=== PATIENT | female | born 1990 | race Caucasian/White ===

== ENCOUNTER 2019-07-08 08:26 | Inpatient (IN) ==
[2019-07-08] MEDS ORDERED: PITOCIN 30 UNITS/NS 30 UNIT/500 ML IV.SOLN ONE (08:47)
[2019-07-08] MEDS ORDERED: LR 2,000 ML ONE (08:47)
[2019-07-08] MEDS ORDERED: STADOL IV PRN (09:04)
[2019-07-08] MEDS ORDERED: LR 500 ML IV ONE (09:04)
[2019-07-08] MEDS ORDERED: AMPICILLIN 2 GM/NS 2 GM/100 ML IVPB IV ONE (09:04)
[2019-07-08] MEDS ORDERED: TYLENOL PO PRN (09:04)
[2019-07-08] MEDS ORDERED: KEFZOL 1 GM/D5W 1 GM/50 ML IVPB IV PRN (09:04)
[2019-07-08] MEDS ORDERED: REGLAN PO ONE (09:04)
[2019-07-08] MEDS ORDERED: PEPCID PO ONE (09:04)
[2019-07-08] MEDS ORDERED: PEPCID PO PRN (09:04)
[2019-07-08] MEDS ORDERED: PEPCID IV PRN (09:04)
[2019-07-08] MEDS ORDERED: ZOFRAN IV PRN (09:04)
[2019-07-08 09:14] LABS: BASO# 0.03 X1000 (0.0-0.2); BASO% 0.2 % (0.0-0.8); EOS# 0.14 X1000 (0.0-0.7); EOS% 0.8 % (0.0-10.0); HEMATOCRIT 35.3 % (37.0-47.0); HEMOGLOBIN 12.1 g/dL (12.0-16.0); IMM GRAN# 0.07 X1000 (0.0-0.04); IMM GRAN% 0.4 % (0.0-0.5); LYMPH# 2.46 X1000 (1.2-3.4); LYMPH% 13.2 % (20.5-51.1); MCH 29.7 PG (27-31); MCHC 34.3 g/dL (33-37); MCV 86.7 FL (81-99); MONO# 1.44 X1000 (0.11-0.59); MONO% 7.7 % (1.7-9.3); MPV 10.7 FL (7.4-10.4); NEUT# 14.49 X1000 (1.4-6.5); NEUT% 77.7 % (42.2-75.2); PLT 411 X1000 (130-400); RBC 4.07 XMIL (4.2-5.4); RDW 12.4 % (11.5-14.5); WBC 18.63 X1000 (4.8-10.8)
[2019-07-08] MEDS ORDERED: SODIUM CHLORIDE 0.9% INJ SCH (09:15)
[2019-07-08] MEDS ORDERED: NAROPIN 0.2% INJ ONE (09:15)
[2019-07-08] MEDS ORDERED: PITOCIN 30 UNITS/NS 30 UNIT/500 ML IV.SOLN IV SCH ×2 (09:15→12:45)
[2019-07-08 09:17] LABS: URINE SOURCE VOIDED
[2019-07-08 09:25] LABS: BILIRUBIN URINE NEGATIVE (NEGATIVE); BLOOD URINE TRACE (NEGATIVE); CLARITY VERY CLOUDY (CLEAR); COLOR YELLOW; GLUCOSE URINE NEGATIVE (NEGATIVE); KETONE URINE NEGATIVE (NEGATIVE); LEUKOCYTES URINE 2+ (NEGATIVE); NITRITE URINE NEGATIVE (NEGATIVE); PH URINE 6.5; PROTEIN URINE TRACE mg/dL (NEGATIVE); UROBILINOGEN URINE NORMAL
[2019-07-08] MEDS: LR 1,000 ML IV SCH ×2 (09:48→10:46)
[2019-07-08] MEDS ORDERED: FENTANYL-BUPIV-NS 2 MCG-0.1% 200 ML EPIDURAL SCH (10:00)
[2019-07-08] MEDS ORDERED: EPHEDRINE IV ONE ×4 (10:00→10:50)
[2019-07-08] MEDS ORDERED: EPINEPHRINE ONE (10:04)
[2019-07-08] MEDS ORDERED: EPHEDRINE ONE (10:20)
--- NOTE | 2019-07-08 10:42 | HISTORY AND PHYSICAL ---
HISTORY OF PRESENT ILLNESS: The patient is a 28-year-old G5, P0, 2-2-2 who presents to Labor and Delivery at 35 weeks in early labor. The patient reports minimal movement and positive contractions. Negative leakage of fluid or vaginal bleeding. MEDICATIONS: vitamins. PAST MEDICAL HISTORY: None. PAST SURGICAL HISTORY: D C times 2 in 2008 and 2016, and gallbladder removal in 2018. 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 Two prior deliveries at 36 weeks. No complications. Two spontaneous miscarriages complicated by Brian Goldsmith. INCOMPLETE REPORT -- DICTATION ENDED HERE
--- NOTE | 2019-07-08 10:46 | HISTORY AND PHYSICAL ---
ADDENDUM: HISTORY OF PRESENT ILLNESS: The patient is a 28-year-old G5, P0, 2-2-2 who presents to Labor and Delivery at 35 weeks and 5 days in early labor. The patient reports minimal movement and positive contractions. Negative leakage of fluid or vaginal bleeding. MEDICATIONS: vitamins. PAST MEDICAL HISTORY: None. PAST SURGICAL HISTORY: D and C times 2 in 2009 and 2017, and gallbladder removal in 2018. 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 Two prior deliveries at 36 weeks. No complications. Two spontaneous miscarriages complicated by D C. PHYSICAL EXAMINATION: VITAL SIGNS: Stable. GENERAL: No acute distress. Alert, awake, oriented x3. CARDIOVASCULAR: Regular rate and rhythm. Positive S1, S2. RESPIRATORY: Clear to auscultation bilaterally. ABDOMEN: Gravid. Nontender to palpation. PELVIC: Sterile vaginal exam, 4 to 5 cm dilated, 80% effaced, -1 station. Electronic monitoring, category 1 tracing, toco contractions occurring every 3 to 5 minutes. LABORATORY DATA: WBCs 18.63, hemoglobin 12.1, hematocrit 35.3, platelets 411,000. RPR nonreactive. ASSESSMENT: Ms. John is a 28-year-old, G5, P0-2-2-2, at 35 weeks and 5 days, who presents to Labor and Delivery in early labor. PLAN: 1. Admit to Labor and Delivery for early labor. 2. Obtain routine labor labs. 3. Start ampicillin for GBS unknown. 4. Estimated weight 6.5 pounds. 5. Anticipate vaginal delivery. 6. continuous monitoring [facility]
[2019-07-08] MEDS ORDERED: CYTOTEC PO PRN (12:32)
[2019-07-08] MEDS ORDERED: M-M-R II VACCINE SUBQ ONE (12:32)
[2019-07-08] MEDS ORDERED: BENADRYL PO PRN (12:32)
[2019-07-08] MEDS ORDERED: MINERAL OIL PO PRN (12:32)
[2019-07-08] MEDS ORDERED: PERI MEDS (DERMOPLAST/NUPERCAINAL/TUCKS) MISC PRN (12:32)
[2019-07-08] MEDS ORDERED: HYDROXYZINE IM PRN (12:32)
[2019-07-08] MEDS ORDERED: BOOSTRIX VACCINE IM ONE (12:32)
[2019-07-08] MEDS ORDERED: ATARAX PO PRN (12:32)
[2019-07-08] MEDS ORDERED: AMBIEN PO PRN (12:32)
[2019-07-08] MEDS ORDERED: PITOCIN IM PRN (12:32)
[2019-07-08] MEDS ORDERED: XYLOCAINE-MPF 1% INJ PRN (12:32)
[2019-07-08] MEDS ORDERED: BENADRYL IV PRN (12:32)
[2019-07-08] MEDS ORDERED: PITOCIN 20 UNITS/NS 20 UNITS/1,000 ML IV.SOLN IV SCH (12:45)
[2019-07-08] MEDS ORDERED: AMPICILLIN 1 GM/NS 1 GM/50 ML IVPB IV SCH (13:06)
[2019-07-08 14:13] LABS: UR AMPHETAMINES QUAL NONE DETECTED (NONE DETECT); UR BARBITUATES QUAL NONE DETECTED (NONE DETECT); UR BENZODIAZEPIN QUAL NONE DETECTED (NONE DETECT); UR CANNABINOIDS QUAL NONE DETECTED (NONE DETECT); UR COCAINE QUAL NONE DETECTED (NONE DETECT); UR METHADONE QUAL NONE DETECTED (NONE DETECT); UR METHAMPHETAMINE QUAL NONE DETECTED (NONE DETECT); UR OPIATES QUAL NONE DETECTED (NONE DETECT); UR OXYCODONE QUAL NONE DETECTED (NONE DETECT); UR PCP QUAL NONE DETECTED (NONE DETECT); UR PROPOXYPHENE QUAL NONE DETECTED (NONE DETECT); UR TCA QUAL NONE DETECTED (NONE DETECT)
[2019-07-08] MEDS: MOTRIN PO PRN (15:02)
--- NOTE | 2019-07-08 19:17 | OPERATIVE NOTE ---
PROCEDURE DATE: 07/08/2019 DELIVERY NOTE: Spontaneous vaginal delivery. DATE OF VAGINAL DELIVERY: 07/08/2019. DELIVERING PROVIDER: Dr. Walter Resendez. DESCRIPTION OF PROCEDURE: At 12:25 p.m., the patient delivered a viable, 35 week 5 day male fetus, weighing 5 pounds 11 ounces, with Apgars of 8 and 9 at one and five minutes respectively. The vertex was delivered spontaneously over intact perineum. No nuchal cord was identified. The anterior shoulder was delivered atraumatically by maternal expulsive efforts with the assistance of downward traction. The posterior shoulder delivered with maternal expulsive efforts and upward traction. The remainder of the fetus delivered spontaneously. Upon delivery, the cord was clamped and cut. The infant was then passed to the awaiting microbiology lab manager staff. Cord blood was obtained for analysis. The placenta delivered spontaneously intact with a three-vessel cord. To enhance uterine contractions, IV oxytocin was administered along with uterine fundal massage. The cervix, vagina, and perineum were inspected for lacerations. No lacerations were identified. ESTIMATED BLOOD LOSS: 200 mL.
[2019-07-08] MEDS ORDERED: PERICOLACE PO SCH (21:00)
[2019-07-09 04:38] LABS: BASO# 0.02 X1000 (0.0-0.2); BASO% 0.1 % (0.0-0.8); EOS# 0.19 X1000 (0.0-0.7); EOS% 1.2 % (0.0-10.0); HEMATOCRIT 29.5 % (37.0-47.0); HEMOGLOBIN 9.6 g/dL (12.0-16.0); IMM GRAN# 0.05 X1000 (0.0-0.04); IMM GRAN% 0.3 % (0.0-0.5); LYMPH# 3.26 X1000 (1.2-3.4); LYMPH% 20.7 % (20.5-51.1); MCH 29.1 PG (27-31); MCHC 32.5 g/dL (33-37); MCV 89.4 FL (81-99); MONO# 1.65 X1000 (0.11-0.59); MONO% 10.5 % (1.7-9.3); MPV 10.6 FL (7.4-10.4); NEUT# 10.61 X1000 (1.4-6.5); NEUT% 67.2 % (42.2-75.2); PLT 313 X1000 (130-400); RDW 12.6 % (11.5-14.5); WBC 15.78 X1000 (4.8-10.8)
--- NOTE | 2019-07-09 09:04 | OB/GYN PROGRESS NOTE ---
Progress Note OB - . OB Progress Note: Vital Signs - 24 hr 07/08/19 12:35 07/08/19 12:45 07/08/19 12:55 Temperature 97.2 F L Pulse Rate 112 H 94 H 88 Respiratory Rate 20 20 20 Blood Pressure Blood Pressure [Left Arm] 124/67 106/58 108/57 O2 Sat by Pulse Oximetry 98 98 99 07/08/19 13:05 07/08/19 13:15 07/08/19 13:25 Temperature Pulse Rate 67 68 70 Respiratory Rate 20 20 20 Blood Pressure Blood Pressure [Left Arm] 110/60 113/66 109/58 O2 Sat by Pulse Oximetry 99 100 99 07/08/19 13:35 07/08/19 16:05 07/08/19 17:05 Temperature 98.5 F 98.2 F Pulse Rate 59 L 84 76 Respiratory Rate 20 20 20 Blood Pressure 108/57 96/53 Blood Pressure [Left Arm] 108/61 O2 Sat by Pulse Oximetry 100 98 99 07/08/19 18:09 07/08/19 20:10 07/09/19 00:30 Temperature 96.9 F L 97.2 F L Pulse Rate 78 96 H 96 H Respiratory Rate 20 18 18 Blood Pressure 107/61 119/65 112/64 Blood Pressure [Left Arm] O2 Sat by Pulse Oximetry 98 07/09/19 08:20 Temperature 97.4 F L Pulse Rate 86 Respiratory Rate 16 Blood Pressure 116/65 Blood Pressure [Left Arm] O2 Sat by Pulse Oximetry 100 Laboratory Results - last 24 hr 07/08/19 07/08/19 07/08/19 08:45 08:45 08:45 WBC 18.63 H RBC 4.07 L Hgb 12.1 Hct 35.3 L MCV 86.7 MCH 29.7 MCHC 34.3 RDW Std Deviation 12.4 Plt Count 411 H MPV 10.7 H Immature Gran % (Auto) 0.4 Neut % (Auto) 77.7 H Lymph % (Auto) 13.2 L Warrick % (Auto) 7.7 Eos % (Auto) 0.8 Baso % (Auto) 0.2 Immature Gran # (Auto) 0.07 H Neut # (Auto) 14.49 H Lymph # (Auto) 2.46 Warrick # (Auto) 1.44 H Eos # (Auto) 0.14 Baso # (Auto) 0.03 Urine Source VOIDED Urine Color YELLOW Urine Clarity VERY CLOUDY A Urine pH 6.5 Ur Specific [place] 1.010 Urine Protein TRACE A Urine Ketones NEGATIVE Urine Blood TRACE Urine Nitrite NEGATIVE Urine Bilirubin NEGATIVE Urine Urobilinogen NORMAL Urine WBC 2+ A Urine Glucose NEGATIVE Urine Opiates Screen Ur Oxycodone Screen Urine Methadone Screen U Propoxyphene Qual Ur Barbituates Screen Ur Tricyclics Screen Ur Phencyclidine Scrn Ur Amphetamines Screen U Methamphetamines Scrn U Benzodiazepines Scrn Urine Cocaine Screen U Cannabinoids Screen RPR NON-REACTIVE Rubella Immunity Screen 07/08/19 07/08/19 07/09/19 08:45 08:45 04:17 WBC 15.78 H RBC 3.30 L Hgb 9.6 L D Hct 29.5 L MCV 89.4 MCH 29.1 MCHC 32.5 L RDW Std Deviation 12.6 Plt Count 313 MPV 10.6 H Immature Gran % (Auto) 0.3 Neut % (Auto) 67.2 Lymph % (Auto) 20.7 [place] % (Auto) 10.5 H Eos % (Auto) 1.2 Baso % (Auto) 0.1 Immature Gran # (Auto) 0.05 H Neut # (Auto) 10.61 H Lymph # (Auto) 3.26 Warrick # (Auto) 1.65 H Eos # (Auto) 0.19 Baso # (Auto) 0.02 Urine Source Urine Color Urine Clarity Urine pH Ur Specific [place] Urine Protein Urine Ketones Urine Blood Urine Nitrite Urine Bilirubin Urine Urobilinogen Urine WBC Urine Glucose Urine Opiates Screen NONE DETECTED Ur Oxycodone Screen NONE DETECTED Urine Methadone Screen NONE DETECTED U Propoxyphene Qual NONE DETECTED Ur Barbituates Screen NONE DETECTED Ur Tricyclics Screen NONE DETECTED Ur Phencyclidine Scrn NONE DETECTED Ur Amphetamines Screen NONE DETECTED U Methamphetamines Scrn NONE DETECTED U Benzodiazepines Scrn NONE DETECTED Urine Cocaine Screen NONE DETECTED U Cannabinoids Screen NONE DETECTED RPR Rubella Immunity Screen IMMUNE Pt doing well pain controlled minimal lochia bottlefeeding desires BTL O Vitals as above Gen: AAOx3 NAD CV: no g/m/r Lungs: CTAB no w/r/r Abd: +BS soft NT/ND fundus firm at u-2 Ext: no c/c/e Labs as above A: PPD#1 s/p elevated WBCs improving Anemia P: Routine pp care
[2019-07-09] MEDS: MOTRIN PO PRN (15:59)
[2019-07-10 07:38] LABS: HEPATITIS B SURFACE ANTIGEN SEE COMMENTS
[2019-07-10 09:37] VITALS: BP 129/74
--- NOTE | 2019-07-13 16:00 | DISCHARGE SUMMARY ---
ADMISSION DATE: 07/08/2019 DISCHARGE DATE: 07/10/2019 ADMISSION DIAGNOSIS: A 28-year-old female G5, P0-2-2-2 at 35 and 5/7 weeks in early labor. FINAL DIAGNOSIS: 1. A 28-year-old female G5, P0-2-2-2 at 35 and 5/7 weeks in early labor. 2. A spontaneous vaginal delivery of a male 5 pounds 11 ounces, Apgars 8 and 9 at 12:25 on 07/08/2019. PROCEDURE: Spontaneous vaginal delivery. BRIEF HISTORY: Patient 28-year-old female G5, P0-2-2-2 at 35-5/7 weeks presents in early labor. The patient reports minimal movement, pause in contractions, negative leaking, no bleeding. MEDICATIONS: vitamins. MEDICAL HISTORY: Unremarkable. PAST SURGICAL HISTORY: D and C x2 and she also had cholecystectomy in 2018. 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 PAST OB HISTORY: G5, P0-2-2-2, 2 prior deliveries at 36 weeks no complications, 2 spontaneous vaginal deliveries PHYSICAL EXAMINATION: Vital Signs: Stable. General: No acute distress. Alert, awake, and oriented x3. Cardiovascular: Regular rate and rhythm. Respiratory: Clear to auscultation. Abdomen: Gravid, nontender. Pelvic: Cervix was dilated 4 to 5 cm, 80% effaced, -1 station. External monitoring revealed a category 1 heart tracing with contractions occurring every 3 to 5 minutes. ASSESSMENT: A 28-year-old female G5, P0-2-2-2 at 35 and 5/7 weeks presents to labor, delivery in early labor, patient be admitted, start ampicillin for unknown group B strep status. Anticipate vaginal delivery and obtain routine labor labs. Patient proceeded with a spontaneous vaginal delivery of a male infant, 5 pounds 11 ounces with Apgars of 8 and 9 at 12:25 on 07/08/2019. The patient's course was unremarkable. Her hemoglobin was 9.6 and hematocrit was 29.5. She was ambulatory had stable vital signs and on day #2 felt she could be discharged home. DISCHARGE PLANS: Patient is to follow up in 6 weeks for checkup. Instructed on pelvic rest for the next 6 weeks. The patient was given discharge medications for her Cowgill 5, Colace 100 mg, Motrin 800 mg and iron sulfate 325 mg. cc: MD LIZZIE Haro III
== END 2019-07-10 15:30 | disposition home or self-care (01) | DRG 807 ==
LOC: P.LD 08:26
PROVIDERS: ADMIT Obstetrics & Gynecology; ATTEND Obstetrics & Gynecology